=== PATIENT | male | born 1940 | race Caucasian/White ===

== ENCOUNTER 2018-02-05 07:12 | Inpatient (IN) | payer MEDICARE ==
[2018-02-02 13:21] LABS: BASOPHILS # (AUTO) 0.1 (0.0-0.1); BASOPHILS % 0.9 % (0.0-1.0); HEMATOCRIT 38.8 % (38.2-49.6); HEMOGLOBIN 12.7 g/dL (14.0-18.0); LYMPHOCYTES # (AUTO) 2.6 (1.0-3.2); MEAN CORPUSCULAR HEMOGLOBIN 28.5 pg (28-32); MEAN CORPUSCULAR HGB CONC 32.7 g/dL (31-35); MEAN CORPUSCULAR VOLUME 87.2 fL (81-99); MONOCYTES # (AUTO) 0.7 (0.2-0.8); MONOCYTES % 8.5 % (4.4-11.3); NEUTROPHILS # (AUTO) 4.4 (2.1-6.9); NEUTROPHILS % 55.7 % (38.7-80.0); PLATELET COUNT 327 x10e3/uL (140-360); RED BLOOD COUNT 4.45 x10e6/uL (4.3-5.7); RED CELL DISTRIBUTION WIDTH 14.3 % (11.7-14.4)
[2018-02-02 13:38] LABS: ANION GAP 12.9 mmol/L (8-16); CALCIUM 10.3 mg/dL (8.4-10.2); CREATININE, SERUM 1.26 mg/dL (0.72-1.25); POTASSIUM 4.9 mmol/L (3.5-5.1)
--- NOTE | 2018-02-02 14:06 | Diagnostic Imaging Report ---
PROCEDURE: Frontal and lateral views of the chest. COMPARISON: None. INDICATIONS: PRE-OPERATIVE CHEST X-RAY FOR KNEE SURGERY FINDINGS: Lines/tubes: None. Lungs: The lungs are well inflated and clear. There is no evidence of pneumonia or pulmonary edema. Pleura: There is no pleural effusion or pneumothorax. Heart and mediastinum: The heart and the mediastinum are normal. Aorta is calcified and mildly tortuous. Bones: No acute bony abnormality. Degenerative changes of thoracic spine. IMPRESSION: 1. No acute cardiopulmonary disease. Dictated by: Marco Monge M.D. on 02/02/2018 at 14:07 Electronically approved by: Marco Monge M.D. on 02/02/2018 at 14:07
[~2018-02-05] VITALS: Ht 185.4 cm; Wt 84.4 kg
[~2018-02-05 07:12] MED LIST: DOXAZOSIN PO; FLUTICASONE PRO16 GM; GABAPENTIN300 MG PO; GEMFIBROZIL600 MG PO; LEVOTHYROXINE200 MCG PO; MECLIZINE HCL25 MG PO; METFORMIN HCL500 MG PO; MONTELUKAST SOD10 MG PO; NAPROXEN500 MG PO; NEXIUM40 MG PO; PRAVASTATIN SOD20 MG PO; ROPIVACAINE 246.25 MG, EPINEPHRINE HCL 1:1000 0.5 MG, CLONIDINE HCL 0.08 MG, KETOROLAC ... INJ ONE; TIZANIDINE HCL2 M1 PO; VASOTEC5 MG PO; VENLAFAXINE HCL75 MG PO
--- OUTSIDE RECORDS SUMMARY | 2018-02-05 07:14 | XMS REPORT ---
Author Author [facility] Address Unknown Phone Unavailable Care Team Providers Care Nurse Research Name Role Phone ARMINDA GILMORE Unavailable Unavailable Problems This patient has no known problems. Allergies, Adverse Reactions, Alerts This patient has no known allergies or adverse reactions. Medications This patient has no known medications. Results Test Description Test Time Test Comments Text Results Atomic Results Result Comments CHEST [address] [address] Patient Name: DAVON HARDEN JR MR #: [id number] : 1940 Age/Sex: 77/M Req #: [id number] Adm Physician: Ordered by: ARMINDA GILMORE MD Report #: [id number] Location: OR Room/Bed: Procedure: [id number] DX/CHEST 2 VIEWS Exam Date: 02/02/18 Exam Time: 1335 REPORT STATUS: Signed PROCEDURE: Frontal and lateral views of the chest. COMPARISON: None. INDICATIONS: PRE-OPERATIVE CHEST X- RAY FOR KNEE SURGERY FINDINGS: Lines/tubes: None. Lungs: The lungs are well inflated and clear. There is no evidence of pneumonia or pulmonary edema. Pleura: There is no pleural effusion or pneumothorax. Heart and mediastinum: The heart and the mediastinum are normal. Aorta is calcified and mildly tortuous. Bones: No acute bony abnormality. Degenerative changes of thoracic spine. IMPRESSION: 1. No acute cardiopulmonary disease. Dictated by: Marco Monge M.D. on 2017 at 14:07 Electronically approved by: Marco Monge M.D. on 2017 at 14:07 Dictated By: MARCO MONGE MD 06 Transcribed By: HANNAH on 02/02/181406 COPY TO: ARMINDA GILMORE MD
[2018-02-05] MEDS ORDERED: DEXAMETHASONE SOD PHOS 10 MG/1 ML VIAL ONE (07:18)
[2018-02-05] MEDS ORDERED: CELECOXIB 200 MG CAP ONE (07:18)
[2018-02-05] MEDS ORDERED: CEFAZOLIN SOD 2 GM/D5W 50ML 50 ML IV ONE (07:19)
[2018-02-05] MEDS ORDERED: GABAPENTIN 300 MG CAP ONE (07:19)
[2018-02-05] MEDS ORDERED: BACITRACIN 50,000 UNIT VIAL ONE (10:21)
[2018-02-05] MEDS ORDERED: MUPIROCIN 2% OINT 22 GM TUBE ONE (10:21)
[2018-02-05] MEDS ORDERED: TRANEXAMIC ACID 1,000 MG/10 ML ML ONE (10:21)
[2018-02-05] MEDS ORDERED: PROMETHAZINE HCL (IM) 25 MG/ML VIAL IM PRN (11:30)
[2018-02-05] MEDS ORDERED: DIPHENHYDRAMINE HCL INJ 50 MG/ML VIAL IM/IV PRN (11:30)
[2018-02-05] MEDS ORDERED: ACETAMINOPHEN 650 MG SUPP PR PRN (11:30)
[2018-02-05] MEDS ORDERED: KETOROLAC TROMETHAMINE 30 MG/ML VIAL IV PRN (11:30)
[2018-02-05] MEDS ORDERED: ONDANSETRON HCL INJ 2 MG/ML VIAL IV PRN (11:30)
[2018-02-05] MEDS ORDERED: HYDROCODONE/APAP 5MG-325MG TAB PO PRN (11:30)
[2018-02-05] MEDS ORDERED: DOCUSATE SODIUM 100 MG CAP PO PRN (11:30)
[2018-02-05] MEDS: SODIUM CHLORIDE 0.9% 1000ML 1,000 ML IV SCH ×2 (11:59→21:19)
--- NOTE | 2018-02-05 12:22 | Diagnostic Imaging Report ---
PROCEDURE:X-RAY RIGHT KNEE, ONE OR TWO VIEWS COMPARISON:None. INDICATIONS:POST OP FINDINGS:Status post total right knee arthroplasty with intact prosthesis in adequate anatomic alignment. There is post-operative suprapatellar effusion, soft tissue swelling and gas. Multiple surgical skin wandy. No acute fracture-dislocation. No definite intra-osseous lesion. CONCLUSION:Status post total right knee arthroplasty with intact prosthesis in adequate anatomic alignment. Dictated by: Emeka Harris M.D. on 02/05/2018 at 12:23 Electronically approved by: Emeka Harris M.D. on 02/05/2018 at 12:23
[2018-02-05 12:33] VITALS: BP 135/66
[2018-02-05] MEDS: ACETAMINOPHEN 1000 MG/100 ML IV SCH ×3 (12:59→23:30)
--- NOTE | 2018-02-05 12:59 | Operative Report ---
DATE OF PROCEDURE: February 05, 2018 BASKET FILLER: Familia Hanson PA-C The patient was brought to the operating room for induction of anesthesia. Throughout this case, my PA's assistance was necessary for retraction of soft tissue and positioning of the extremity. This allows for efficient and technically successful execution of the operation and is considered medically necessary. PREOPERATIVE DIAGNOSIS: Osteoarthritis right knee. POSTOPERATIVE DIAGNOSIS: Osteoarthritis right knee. PROCEDURE: Right total knee arthroplasty. INDICATIONS: The patient is a 77-year-old gentleman with advanced osteoarthritis of his right knee. He has failed extensive conservative management and would like to proceed with a right total knee replacement. The risks and benefits of the procedure have been explained. The recovery has been discussed. He states he understands and wishes to proceed. DESCRIPTION OF PROCEDURE: The patient was brought to the operating room and placed under general anesthetic. He received a regional block, prophylactic antibiotics and a gram of tranexamic acid in the holding area. His right lower extremity was prepped and draped in a sterile manner. A preoperative time out was performed. The extremity was exsanguinated and a proximal tourniquet was inflated to 300 mmHg. An anterior approach with a medial parapatellar arthrotomy was performed. Clear synovial fluid was removed from the joint. Soft tissue releases were performed to bring the knee up into flexion with the patella everted. The cruciate ligaments were sacrificed. A [employer]a II posterior stabilized knee system was used throughout the case. An extramedullary cutting guide was used to resect the proximal tibia. The tibial baseplate was noted to be a size number 6. The central fin punch was impacted and attention was directed towards the distal femur. An intramedullary cutting guide was used to resect the distal femur in 6 degrees of valgus and rotation referenced off of a combination of landmarks including Goodrich line, the epicondylar axis and posterior condyles. The femoral component was also a size number 6. The anterior and posterior cuts were made. Trial reductions were performed. A 9 mm ultra congruent tibial insert was felt to provide optimal soft tissue balancing in full extension and 90 degrees of flexion. The patella was resurfaced with a 35 mm x 9 mm patellar button. The thickness was checked before and after and was right at 25 mm. Patellar tracking was noted to be concentric. The trial implants were then all removed. A 100 mL premixed pericapsular injection was placed. The knee was thoroughly irrigated with a Pulsavac. The components were cemented into place using a single mix of Palacos cement pre-loaded with antibiotics. Care was taken to remove all extravasated cement. The knee was further irrigated with a shower-tip pulsatile lavage while the cement cured. The arthrotomy was then closed with interrupted number 1 Ethibond. The knee was put through flexion and extension to ensure a secure closure. The skin was then closed with subcuticular Vicryl and wandy. A sterile bandage was applied. The patient was extubated and transported to the recovery room in stable condition. Blood loss was minimal and all needle and sponge counts were correct. Job#: [id number] DIOMEDES
[2018-02-05 13:00] VITALS: BP 135/66
[2018-02-05 13:14] VITALS: BP 135/66
[2018-02-05] MEDS ORDERED: CEFAZOLIN SOD 1 GM/NS 50ML 50 ML IV SCH (14:00)
[2018-02-05] MEDS ORDERED: METFORMIN HCL500 MG PO (15:03)
[2018-02-05] MEDS ORDERED: DOXAZOSIN MESYLA2 MG PO (15:03)
[2018-02-05] MEDS ORDERED: MONTELUKAST SOD10 MG PO (15:03)
[2018-02-05] MEDS ORDERED: FLUTICASONE PROPIONATE NASAL SPRAY NS SCH (15:15)
[2018-02-05] MEDS ORDERED: NON-FORMULARY MEDICATION (Meclizine Hcl 25 MG) PO SCH (15:15)
[2018-02-05] MEDS ORDERED: FLUTICASONE PROPIONATE NASAL SPRAY NS PRN (15:30)
[2018-02-05] MEDS ORDERED: MECLIZINE HCL 12.5 MG TAB PO PRN (15:30)
[2018-02-05 16:20] VITALS: BP 136/71
[2018-02-05] MEDS ORDERED: METFORMIN HCL 500 MG TAB PO SCH (16:30)
[2018-02-05] MEDS: CELECOXIB 100 MG CAP PO SCH (17:19)
[2018-02-05] MEDS: ASPIRIN 325 MG TAB PO SCH (17:19)
[2018-02-05] MEDS: GEMFIBROZIL 600 MG TAB PO SCH (17:19)
[2018-02-05] MEDS: CEFAZOLIN SOD 1 GM VIAL IV SCH (17:23)
[2018-02-05] MEDS ORDERED: LIDOCAINE HCL 2% LOCAL INJ 5 ML SDV VIAL INJ ONE (17:53)
[2018-02-05] MEDS ORDERED: ONDANSETRON HCL INJ 2 MG/ML VIAL ONE (17:53)
[2018-02-05] MEDS ORDERED: PROPOFOL IV EMULSION 10 MG/ML 20 ML VIAL ONE (17:53)
[2018-02-05] MEDS ORDERED: DEXAMETHASONE SOD PHOS INJ 4 MG/ML VIAL ONE (17:53)
[2018-02-05] MEDS ORDERED: SEVOFLURANE INHAL SOLN 250 ML PEN BTL ONE (17:53)
[2018-02-05] MEDS ORDERED: LIDOCAINE 2%/ EPINEPHRINE 20ML MDV ONE (17:56)
[2018-02-05] MEDS ORDERED: ROPIVACAINE 0.5% 5 MG/ML 30 ML SDV ONE (17:56)
[2018-02-05] MEDS ORDERED: FENTANYL CITRATE/PF 100MCG/2 ML INJ ONE (18:07)
[2018-02-05] MEDS ORDERED: MIDAZOLAM HCL 2 MG/2 ML VIAL ONE (18:07)
[2018-02-05 20:21] VITALS: BP 137/58
[2018-02-05] MEDS ORDERED: ENALAPRIL MALEATE 5 MG TAB PO SCH (21:00)
[2018-02-05] MEDS ORDERED: DOXAZOSIN MESYLATE 2 MG TAB PO SCH (21:00)
[2018-02-05] MEDS ORDERED: ZOLPIDEM TARTRATE 5 MG TAB PO PRN (21:00)
[2018-02-05] MEDS ORDERED: PRAVASTATIN 20 MG TAB PO SCH (21:00)
[2018-02-05] MEDS ORDERED: GABAPENTIN 300 MG CAP PO SCH (21:00)
[2018-02-05 22:48] VITALS: BP 137/58
[2018-02-06] VITALS: BP 124/60
[2018-02-06] MEDS: CEFAZOLIN SOD 1 GM VIAL IV SCH ×2 (02:13→10:00)
[2018-02-06 04:00] VITALS: BP 143/71
[2018-02-06] MEDS ORDERED: LEVOTHYROXINE SODIUM 100 MCG TAB PO SCH (06:00)
[2018-02-06] MEDS: ACETAMINOPHEN 1000 MG/100 ML IV SCH (06:00)
[2018-02-06 06:56] LABS: HEMATOCRIT 34.1 % (38.2-49.6); HEMOGLOBIN 11.4 g/dL (14.0-18.0)
[2018-02-06 08:04] VITALS: BP 162/77
[2018-02-06] MEDS: HYDROCODONE/APAP 7.5MG-325MG 1 EA TAB PO PRN ×2 (08:28→12:59)
[2018-02-06] MEDS: CELECOXIB 100 MG CAP PO SCH (08:41)
[2018-02-06] MEDS: GEMFIBROZIL 600 MG TAB PO SCH (08:41)
[2018-02-06] MEDS: ASPIRIN 325 MG TAB PO SCH (08:41)
[2018-02-06] MEDS: SODIUM CHLORIDE 0.9% 1000ML 1,000 ML IV SCH (08:41)
[2018-02-06] MEDS ORDERED: PANTOPRAZOLE SOD 40 MG TABEC PO SCH (09:00)
[2018-02-06] MEDS ORDERED: GABAPENTIN 300 MG CAP PO SCH (09:00)
[2018-02-06] MEDS ORDERED: NON-FORMULARY MEDICATION (Levothyroxine Sodium 200 MCG) PO SCH (09:00)
[2018-02-06] MEDS ORDERED: MONTELUKAST SODIUM 10 MG TAB PO SCH (09:00)
[2018-02-06] MEDS ORDERED: ACETAMINOPHEN 1000 MG/100 ML IV PRN (11:30)
[2018-02-06] MEDS ORDERED: ASPIRIN325 MG PO (11:59)
[2018-02-06 12:33] VITALS: BP 155/70
[2018-02-06 16:34] VITALS: BP 181/81
== END 2018-02-06 16:44 | disposition home health service (06) | DRG 470 ==
LOC: OR 07:12 → MED/SURG 12:33
PROVIDERS: ADMIT Specialist; ATTEND Specialist
PROC: 0SRC0J9 Replacement of Right Knee Joint with Synthetic Substitute, Cemented, Open Approach (ICD-10-PCS; principal; 2018-02-05 09:30)
DX: M17.11 Unilateral primary osteoarthritis, right knee (principal); E11.22 Type 2 diabetes mellitus with diabetic chronic kidney disease; N18.3 Chronic kidney disease, stage 3 (moderate); I12.9 Hypertensive chronic kidney disease with stage 1 through stage 4 chronic kidney disease, or unspecified chronic kidney disease; E78.5 Hyperlipidemia, unspecified; E03.9 Hypothyroidism, unspecified; K21.9 Gastro-esophageal reflux disease without esophagitis; D64.9 Anemia, unspecified
CPT/HCPCS: 36415; 71046; 80048; 82948; 85014; 85018; 85025; 86850; 86900; 86920; 93005; J0171; J0690; J1100; J1885; J2001; J2250; J2405; J2795; J7030